=== PATIENT | male | born 1960 | race Caucasian/White ===

== ENCOUNTER 2016-09-25 00:57 | Inpatient (IN) | payer OTHER ==
[~2016-09-25] VITALS: Ht 193 cm; Wt 131.5 kg
[~2016-09-25 00:57] MED LIST: AMOXICILLIN500 M2 PO; AUBAGIO14 M1 PO; CEFAZOLIN1 GM/50 M1 IV; COUMADIN2 M1 PO; DOCUSATE SODIU100 M3 PO; FLAGYL250 M1 PO; FLAGYL500 MG PO; LOVENOX150 MG/1 M SC; METHENAMINE HIPP1 G1 PO; NEURONTIN800 M2 PO; PROBIOTIC1 EACH PO; SIMVASTATIN40 M1 PO; SULFAMETHOXAZO1 EAC1 PO; TIZANIDINE HCL4 M1 PO; TRAMADOL HCL E150 MG PO; VITAMIN B-121000 MC3 PO; WARFARIN SODIUM2 M1 PO
--- NOTE | 2016-09-25 11:19 | Operative Report ---
Operative/Inv Procedure Report Surgery Date: 09/25/16 Name of Procedure: Cystoscopy, laser lithotripsy of encrusted right double-J ureteral stent, removal of right double-J ureteral stent, right ureteroscopy with laser lithotripsy of ureteral stones, insertion of new left double-J ureteral stent Pre-Operative Diagnosis: Calcified indwelling right ureteral stent with multiple ureteral calculi Post-Operative Diagnosis: Same Estimated Blood Loss: less than 50ml Surgeon/Plastics Plater: Josie COSTA, Carl FAIR MD,CARL Devlin Anesthesia: laryngeal mask airway Drains: 26 cm 6 Gabonese right double-J ureteral stent with short suture and indwelling 18 Gabonese Lieberman catheter Specimens: Urine C&S and multiple stone fragments Complications: None Condition: Stable Operative Indication: Calcified, stone encrusted right double-J ureteral stent and ureteral stones Operative/Procedure Note Note: The patient was taken to the cystoscopy room and identified. He is placed in supine position on the cystoscopy table. Surgical pause was executed appropriately. Gen. anesthesia was given via LMA. He was then placed in the dorsal lithotomy position and prepped and draped in usual fashion for cystoscopy. A surgical pause and timeout had been executed appropriately. A fluoroscopy image was taken with a marker on the right side of the abdomen to confirm the right side of the surgery as well as the correct orientation of the fluoroscopy image the 22 Gabonese cystoscope sheath was placed into the bladder under direct vision using the 30 lens. Anterior urethra was normal. The prostate was nonobstructing. Upon entering the bladder there were 2 stents exiting the right ureteral orifice. Both were stone encrusted on the distal ends. The holmium laser fiber was used to fragment the stones off the ureteral stents. The newest ureteral stent was then grabbed and removed without difficulty. The right other ureteral stent could not be removed. Therefore the rigid ureteroscope was advanced adjacent to the ureteral stent after a guidewire had been placed up to the kidney. Throughout the entire length of the stent the holmium laser was used to remove stone encrustations. The level of L4-L5 there were multiple other stones noted in these were fragmented with the laser as well. Up in the renal pelvis there were stones encrusted on the proximal end of ureteral stent and these were removed using the holmium laser as well. No attempt was made to basket any stone fragments output all stone fragments were treated with the laser trimeric sergey possible. At this point the cystoscope was back loaded onto the guidewire. An open-ended catheter was placed over the wire and some contrast injected to outline the right renal collecting system. The guidewire was placed back through the open-ended stent which was removed. Under visual fluoroscopic control a 26 cm 6 Gabonese right double-J ureteral stent was placed with a short suture on the end. Patient tolerated the procedure well. After placement of a Lieberman catheter he was taken to recovery room in stable condition. This completes the operative dictation on cystoscopy Findings: Stone encrustations on the distal coil of both right ureteral stents and stone encrustations throughout the entire length of the older of the 2 stents Discharge Disposition: PACU Additional Comments: Of note all stone fragments in the bladder were irrigated from the bladder before the procedure was terminated
[2016-09-25 17:35] VITALS: BP 110/78
--- NOTE | 2016-09-25 18:19 | PN- Urology ---
Surgical Brief Attending Note Brief Attending Note: In 1 day surgery patient temperature lisette to 99.5. Pt's very fearful of impending sepsis as this has happened after urologic procedures in the past. Will admit overnight for observation for sepsis. Repeat labs and continue bactrim and amoxicillan
--- NOTE | 2016-09-25 19:31 | NUR ---
PATIENT ADMITTED FROM PACU AT 1735. PATIENT ALERT AND ORIENTED X 4. DENIES ANY PAIN AND NAUSEA. SPOUSE AT BED SIDE. MCMILLAN INTACT AND DRAINING DARK CESARIO URINE. SIZE LANDEROS MATTRESS ORDERED. CALL LIGHT WITHIN REACH. WILL CONTINUE TO MONITOR.
[2016-09-25 21:55] VITALS: BP 102/70
[2016-09-25 22:18] LABS: ABSOLUTE BASOPHIL COUNT 0 /CUMM (0.0-0.2); ABSOLUTE EOSINOPHIL COUNT 0 /CUMM (0.0-0.7); ABSOLUTE GRANULOCYTE CT 14.8 /CUMM (1.4-6.5); ABSOLUTE LYMPH COUNT 0.9 /CUMM (1.2-3.4); ABSOLUTE MONOCYTE COUNT 0.5 /CUMM (0.10-0.60); BASOPHIL % 0 % (0.0-2.0); EOSINOPHIL % 0.1 % (0-5); HEMATOCRIT 43.3 % (42-52); MEAN CORPUSCULAR HGB 31.1 PG (27.0-31.0); MEAN CORPUSCULAR HGB CONC 33.8 G/DL (33.0-37.0); MEAN CORPUSCULAR VOLUME 92.3 FL (80.0-94.0); MEAN PLATELET VOLUME 7.8 FL (7.4-10.4); PLATELET COUNT 237 /CUMM (130-400); RBC DISTRIBUTION WIDTH 14.5 % (11.5-14.5); RED BLOOD CELL CT 4.69 /CUMM (4.70-6.10); WHITE BLOOD CELL COUNT 16.2 /CUMM (4.8-10.8)
[2016-09-26 01:25] VITALS: BP 104/58
[2016-09-26 05:23] VITALS: BP 110/70
--- NOTE | 2016-09-26 06:55 | PN- Urology ---
Subjective Subjective: Comfortable. No distress Objective Vital Signs and I&Os Vital Signs Date Time Temp Pulse Resp B/P Pulse O2 O2 Flow FiO2 Ox Delivery Rate 09/26 0523 98.4 90 20 110/70 90 Room Air 09/26 0125 98.5 101 20 104/58 92 Room Air 09/25 2155 98.9 106 20 102/70 91 Room Air 09/25 1735 98.7 112 18 110/78 93 Room Air Intake & Output 09/26 0800 09/26 0000 09/25 1600 09/25 0800 09/25 0000 09/24 1600 Intake Total 1355 855 Output Total 1075 450 Balance 280 405 Intake, IV 875 375 Intake, Oral 480 480 Output, Urine 1075 450 Patient 290 lb Weight Abd: soft and non tender Back: no CVA tenderness Genitalia: singleton in place. Draining clear urine Assessment/Plan Assessment/Plan Imp: 1. Stable s/p R ureteroscopy with extensive laser litho of R ureteral stones 2. MS with neurogenic bladder Plan: 1. Discharge home later today with singleton 2. Pt to continue oral amoxicillan and bactrim. Has at home 3. Home with singleton. will remove in 2 days Core Measures/Miscellaneous Venous Thromboembolism VTE Risk Factors: Immobility, paresis VTE Contraindications: No Contraindications VTE Prophylaxis Ordered Inpt: Mechanical (ALPS/TEDS) VTE Diagnosis: No Beta Mario Is Beta Mario a Home Med? No Antibiotics Is Patient on Antibiotics? Yes
--- NOTE | 2016-09-26 07:34 | Discharge Summary ---
Visit Information Visit Dates Admission Date: 09/25/16 Discharge Date: 09/26/16 Hospital Course Course Attending Physician: Olivia COSTA,CARL Devlin Primary Care Physician: MAXIMUS TREVINO MD Hospital Course: He underwent cystoscopy, laser lithotripsy of bladder stones, R ureteroscopy with removal of calcified R ureteral stents, extensive laser lithotripsy of R ureteral stones and re-insertion of a R ureteral stent. In the SDU his temperture had increased to 99.5 and there was concern for impending sepsis after his urologic instrumentation. He has a hx of sepsis after urologic procedures. He was admitted for obervation over night. His vital signes remained stable and he remained afbrile and is now to be discharged home on oral abx Complications: none Allergies: Coded Allergies: ascorbic acid (Severe, THROAT CLOSURE 12/17/15) apple (UNKNOWN 12/20/15) Significant Procedures: Cystoscopy, laser lithotripsy of bladder stones, removal of stone-encrusted R ureteral stents, extensive laser lithotripsy of R ureteral stones, re-insertion of R ureteral stent Disposition Summary Disposition Principal Diagnosis: R ureteral and bladder stones Additional Diagnosis: multiple sclerosis Discharge Disposition: home or self care Discharge Instructions General Discharge Information Code Status: Full Code Patient's Diet: His pre hospital medications were resumed. There were no changes Patient's Activity: as tolerated Follow-Up Instructions/Appts: To be called by our office for scheduling of f/u CT scan Medications at Discharge Discharge Medications: Continue taking these medications: Tizanidine HCl (Tizanidine HCl) 4 MG TABLET 1 Tablet ORAL TWICE DAILY Qty = 90 Comments: Last Taken: 07/07/16 Time: 9:30 AM Simvastatin (Simvastatin*) 40 MG TABLET 1 Tablet ORAL Every night Qty = 30 Comments: Last Taken: 07/06/16 Time: 5:00 PM Teriflunomide (Aubagio) 14 MG TABLET 1 Tablet ORAL DAILY Qty = 28 Comments: Last Taken: 07/06/16 Time: 9:30 PM Warfarin Sodium (Coumadin) 2 MG TABLET 1 Tablet ORAL DAILY Comments: Last Taken: 07/06/16 Time: 5:00 PM Tramadol HCl (Tramadol HCl ER) 150 MG CPBP.25.75 1 Tablet ORAL AT BEDTIME Comments: Last Taken: 07/06/16 Time: 9:30 PM Gabapentin (Neurontin) 800 MG TABLET 2 Tablet ORAL TWICE DAILY Comments: Last Taken: 07/07/16 Time: 9:30 AM Cyanocobalamin (Vitamin B-12) 1,000 MCG TABLET 1 Tablet ORAL DAILY Comments: DID NOT RECEIVE WHILE IN HOSPITAL Lactobacillus Acidophilus (Probiotic) 10 BILLION CELL CAPSULE 1 Capsule ORAL THREE TIMES DAILY Comments: Last Taken: 07/07/16 Time: 9:30 AM Amoxicillin (Amoxicillin) 500 MG CAPSULE 500 Milligram ORAL THREE TIMES DAILY Days = 10 Comments: Last Taken: 07/07/16 Time: 9:30 AM Sulfamethoxazole/Trimethoprim (Sulfamethoxazole-Tmp Ds Tablet) 800 MG-160 MG TABLET 1 Tablet ORAL TWICE DAILY Days = 10 Comments: Last Taken: 07/07/16 Time: 9:30 AM Copies To: MAXIMUS TREVINO MD
--- NOTE | 2016-09-26 14:37 | RADIOLOGY REPORT ---
EXAMINATION: XR ABDOMEN CLINICAL INDICATION: 56-year-old male with history of right ureteroscopy and laser treatment. COMPARISON: 07/03/2016 TECHNIQUE: Real-time fluoroscopic imaging of the abdomen was utilized by Dr. Galindo during urologic procedures. Please refer to the interventional/operative report. 6 spot fluoroscopy images of the right abdomen are submitted into the electronic picture archive. FLUOROSCOPY TIME: 1.9 minutes. DOSE: 42 mGy FINDINGS: The initial images demonstrate two right-sided ureteral stents in place. Subsequently, a ureteroscopy and retrograde contrast injection was performed. The last submitted image shows a single right ureteral stent in place. Please refer to the operative report regarding details of the intraoperative findings and interventions performed. IMPRESSION: Fluoroscopic imaging assistance was provided to the operating room.
== END 2016-09-26 11:48 | disposition home health service (06) | DRG 670 ==
LOC: STS 00:57 → 2NA 17:57
PROVIDERS: ADMIT Urology
PROC: 0T768DZ Dilation of Right Ureter with Intraluminal Device, Via Natural or Artificial Opening Endoscopic (ICD-10-PCS; principal; 2016-09-25)
PROC: 0TC68ZZ Extirpation of Matter from Right Ureter, Via Natural or Artificial Opening Endoscopic (ICD-10-PCS; 2016-09-25)
PROC: 0TP97DZ Removal of Intraluminal Device from Ureter, Via Natural or Artificial Opening (ICD-10-PCS; 2016-09-25)
DX: N20.1 Calculus of ureter (principal); G35 Multiple sclerosis; I10 Essential (primary) hypertension; Z87.442 Personal history of urinary calculi; N31.9 Neuromuscular dysfunction of bladder, unspecified
CPT/HCPCS: 2NASP; 36415; 74000; 82355; 82436; 87086; 87147; C2617; J0131; J0290; J1100; J1644; J2250; J2405